=== PATIENT | male | born 1950 | race Caucasian/White ===

== ENCOUNTER 2018-05-15 10:58 | Emergency (ER) | payer MEDICARE ==
--- NOTE | 2018-05-15 12:48 | ER Document Report ---
ED Medical Screen (RME) - General Chief Complaint: Hand Swelling Stated Complaint: FINGER PAIN Time Seen by Provider: 05/15/18 12:41 Mode of Arrival: Ambulatory Information source: Patient, Relative TRAVEL OUTSIDE OF THE [place] IN LAST 30 DAYS: No - HPI Patient complains to provider of: possible FB R long finger Onset: Last week - pt. had splinter in R middle finger last week. Though he removed it all but now with swelling of digit. - Related Data Allergies/Adverse Reactions: No Known Allergies Allergy (Unverified 05/15/18 11:01) Physical Exam - Vital signs Vitals: Temp Pulse Resp BP Pulse Ox 97.5 F 52 L 20 155/90 H 98 05/15/18 11:07 05/15/18 11:07 05/15/18 11:07 05/15/18 11:07 05/15/18 11:07 Course - Vital Signs Vital signs: Temp Pulse Resp BP Pulse Ox 97.5 F 52 L 20 155/90 H 98 05/15/18 11:07 05/15/18 11:07 05/15/18 11:07 05/15/18 11:07 05/15/18 11:07
--- NOTE | 2018-05-15 13:12 | RADIOLOGY REPORT (SQ) ---
EXAM DESCRIPTION: HAND RIGHT 3 VIEWS COMPLETED DATE/TIME: 05/15/2018 1:04 pm REASON FOR STUDY: possible FB R middle finger COMPARISON: None. EXAM PARAMETERS: NUMBER OF VIEWS: Three views. TECHNIQUE: AP, lateral and oblique radiographic images acquired of the right hand. LIMITATIONS: None. FINDINGS: MINERALIZATION: Normal. BONES: No acute fracture or dislocation. No worrisome bone lesions. JOINTS: No effusions. SOFT TISSUES: Soft tissue swelling of the distal long finger. No radiopaque foreign body. OTHER: No other significant finding. IMPRESSION: No fracture or dislocation of the right hand. Soft tissue swelling of the distal long f maria l. No radiopaque foreign body. Please note that what or other organic foreign bodies are often non radiodense. TECHNICAL DOCUMENTATION: JOB ID: [id number] [employer]- All Rights Reserved Reading location - IP/workstation name: [email or web address]
--- NOTE | 2018-05-15 15:16 | ER Document Report ---
ED General - General Chief Complaint: Hand Swelling Stated Complaint: FINGER PAIN Time Seen by Provider: 05/15/18 12:41 Mode of Arrival: Ambulatory TRAVEL OUTSIDE OF THE [place] IN LAST 30 DAYS: No - HPI Notes: Patient is a 67-year-old male with no significant past medical history who presents the emergency department complaining of swelling and pain to his right anterior third digit of the hand over the last 1-2 days. Patient states that he may have gotten a piece of wood/splinter in that area 3 days ago. Patient states that the swelling has become progressive and throughout his stay has noticed redness moving about a quarter of an inch proximally. He has not noticed any drainage. Denies drug allergies or IV drug abuse. Denies any headache, fever, neck pain, URI, sore throat, chest pain, palpitations, syncope, cough, shortness of breath, wheeze, dyspnea, abdominal pain, nausea/vomiting/diarrhea, urinary retention, dysuria, hematuria, numbness/tingling, muscle paralysis/weakness, or rash. - Related Data Allergies/Adverse Reactions: No Known Allergies Allergy (Unverified 05/15/18 11:01) Past Medical History - General Information source: Patient, Relative - Social History Smoking Status: Never Smoker Chew tobacco use (# tins/day): No Drug Abuse: None Family History: Reviewed & Not Pertinent Patient has suicidal ideation: No Patient has homicidal ideation: No Renal/ Medical History: Denies: Hx Peritoneal Dialysis Review of Systems - Review of Systems -: Yes All other systems reviewed and negative Physical Exam - Vital signs Vitals: Temp Pulse Resp BP Pulse Ox 97.5 F 52 L 20 155/90 H 98 05/15/18 11:07 05/15/18 11:07 05/15/18 11:07 05/15/18 11:07 05/15/18 11:07 - Notes Notes: PHYSICAL EXAMINATION: GENERAL: Well-appearing, well-nourished and in no acute distress. LUNGS: Breath sounds clear to auscultation bilaterally and equal. No wheezes rales or rhonchi. HEART: Regular rate and rhythm without murmurs, rubs, gallops. Musculoskeletal: Rt 3rd finger: there is erythema and swelling with mild induration and tenderness to the pad with erythema extending proximally to the DIP joint. LROM to passive/active flexion due to swelling, not necessarily pain. Strength 5+/5. N/V intact distal. No paronychia noted. Extremities: No cyanosis, clubbing, or edema b/l. Peripheral pulses 2+. Capillary refill less than 3 seconds. NEUROLOGICAL: Normal speech, normal gait. Normal sensory, motor exams PSYCH: Normal mood, normal affect. SKIN: see above. Course - Re-evaluation Re-evalutation: 05/15/18 15:15 Dr. French performed US on the finger and some fluid was noted concerning for felon. I spoke with Dr. Ramos, Gretchen, who will come evaluate the patient. 05/15/18 15:37 Dr. Ramos eval'd the patient and is not convinced of felon at this time. He did perform a needle I&D but did not find any fluid. He recommends Rocephin 1g IV now and discharged on Augmentin. No further labs or imaging warranted. Direction per surgeon otherwise. Low suspicion for any systemic emergent condition at this time including tenosynovitis or sepsis. Patient to recheck with PCM/orthopedics in 3-5 days. Return to the ED with any other worsening/concerning symptoms. Patient is in agreement. - Vital Signs Vital signs: Temp Pulse Resp BP Pulse Ox 97.5 F 52 L 16 155/90 H 98 05/15/18 11:07 05/15/18 11:07 05/15/18 12:45 05/15/18 11:07 05/15/18 11:07 Discharge - Discharge Clinical Impression: Finger pain, right Condition: Stable Disposition: HOME, SELF-CARE Additional Instructions: Keep the skin clean Wash with soap and water Tylenol/ibuprofen if needed Triple antibiotic ointment daily Epsom salt soaks Take medication as directed Monitor for any worsening symptoms Recheck with your PCM in 3-5 days Schedule f/u with Orthopedics Return to the ED with any worsening symptoms and/or development of fever, headache, chest pain, palpitations, syncope, shortness of breath, trouble breathing, abdominal pain, n/v/d, abscess, purulent discharge, red streaks, worsening swelling, or other worsening symptoms that are concerning to you. Prescriptions: Amox Tr/Potassium Clavulanate [Augmentin 875-125 Tablet] 1 tab PO BID 10 Days #20 tablet Forms: Elevated Blood Pressure Referrals: NGA RAMOS, [ACTIVE STAFF] - Follow up as needed
[2018-05-15] MEDS ORDERED: CEFTRIAXONE 1 GM/D5W RTU 1 GM/50 ML RTUPB IV ONE (15:36)
--- NOTE | 2018-05-15 15:42 | PDOC CONSULTATION ---
History of Present Illness Patient complains of: Right middle finger redness and swelling History of Present Illness: OBINNA STUBBS is a 67 year old male who presents emergency room after sustaining a puncture wound from a splinter in his middle finger. He is unsure if the entire splinter was removed but noticed over the past 24 hours increasing redness swelling and pain. Patient denies fever chills or sweats. Current pain 2/10. Denies numbness. Patient was seen in the emergency room where ultrasound demonstrated possible fluid collection but no foreign body. Past Surgical History Past Surgical History: Reports: Tonsillectomy Social History Smoking Status: Never Smoker Family History Family History: Reviewed & Not Pertinent Parental Family History Reviewed: No Children Family History Reviewed: No Sibling(s) Family History Reviewed.: No Medication/Allergy Allergies/Adverse Reactions: No Known Allergies Allergy (Unverified 05/15/18 11:01) Review of Systems Constitutional: ABSENT: chills, fever(s), headache(s), weight gain, weight loss Eyes: ABSENT: visual disturbances Ears: ABSENT: hearing changes Cardiovascular: ABSENT: chest pain, dyspnea on exertion, edema, orthropnea, palpitations Respiratory: ABSENT: cough, hemoptysis Gastrointestinal: ABSENT: abdominal pain, constipation, diarrhea, hematemesis, hematochezia, nausea, vomiting Genitourinary: ABSENT: dysuria, hematuria Integumentary: ABSENT: rash, wounds Neurological: ABSENT: abnormal gait, abnormal speech, confusion, dizziness, focal weakness, syncope Psychiatric: ABSENT: anxiety, depression, homidical ideation, suicidal ideation Endocrine: ABSENT: cold intolerance, heat intolerance, menstrual abnormalities, polydipsia, polyuria Hematologic/Lymphatic: ABSENT: easy bleeding, easy bruising, lymphadenopathy Physical Exam Vital Signs: Temp Pulse Resp BP Pulse Ox 97.5 F 52 L 16 155/90 H 98 05/15/18 11:07 05/15/18 11:07 05/15/18 12:45 05/15/18 11:07 05/15/18 11:07 Intake & Output 05/14/18 05/15/18 05/16/18 06:59 06:59 06:59 Weight 84.4 kg General appearance: PRESENT: no acute distress, well-developed, well-nourished Head exam: PRESENT: atraumatic, normocephalic Eye exam: PRESENT: conjunctiva pink, EOMI, PERRLA. ABSENT: scleral icterus Ear exam: PRESENT: normal external ear exam Mouth exam: PRESENT: moist, tongue midline Neck exam: PRESENT: full ROM. ABSENT: carotid bruit, JVD, lymphadenopathy, thyromegaly Cardiovascular exam: PRESENT: RRR. ABSENT: diastolic murmur, rubs, systolic murmur Pulses: PRESENT: normal dorsalis pedis pul, +2 pedal pulses bilateral Vascular exam: PRESENT: normal capillary refill GI/Abdominal exam: PRESENT: normal bowel sounds, soft. ABSENT: distended, guarding, mass, organolmegaly, rebound, tenderness Rectal exam: PRESENT: deferred Musculoskeletal exam: PRESENT: other - Right middle finger: Erythema along the pulp of the digit just proximal to the DIP joint. Intact DIP joint flexion/extension. No palpable fluctuance. No tenderness on the flexor sheath. No fusiform swelling. Full active extension without discomfort. Digit was prepped with ChloraPrep 18-gauge needle placed at the splinter entry site no purulent fluid expressible. Neurological exam: PRESENT: alert, awake, oriented to person, oriented to place, oriented to time, oriented to situation, CN II-XII grossly intact. ABSENT: motor sensory deficit Psychiatric exam: PRESENT: appropriate affect, normal mood. ABSENT: homicidal ideation, suicidal ideation Skin exam: PRESENT: dry, intact, warm. ABSENT: cyanosis, rash Results Impressions: Hand X-Ray 05/15/18 12:41 IMPRESSION: No fracture or dislocation of the right hand. Soft tissue swelling of the distal long finger. No radiopaque foreign body. Please note that what or other organic foreign bodies are often non radiodense. Status: Image reviewed by me - 3 views right middle finger: Study demonstrates mild soft tissue swelling. No evidence of foreign body. Assessment & Plan - Diagnosis (1) Cellulitis of right middle finger Is this a current diagnosis for this admission?: Yes Plan: Patient sustained a puncture wound to the middle finger he is unaware of underlying foreign body remains ultrasound from the emergency room physician was negative for underlying foreign body however retained foreign body remains possibility. I do not appreciate any abscess although this is also a possible sequelae of his original injury. After attempting aspiration no fluid was expressible and thus I have recommended 1 dose of Rocephin and begin the patient on Augmentin. Patient noticed increased redness swelling or pain will return to the emergency room.
[2018-05-15 16:33] VITALS: BP 141/84
== END 2018-05-15 16:42 | disposition home or self-care (01) ==
LOC: ER 10:58
DX: M79.644 Pain in right finger(s) (principal); M79.89 Other specified soft tissue disorders; L53.9 Erythematous condition, unspecified
CPT/HCPCS: 99291; 96365; 73130; 10160; J0696